=== PATIENT | female | born 1960 ===

== ENCOUNTER 2017-10-22 14:42 | Emergency (ER) | payer OTHER, BC ==
[~2017-10-22 14:42] MED LIST: Morphine 4 MG/ML Syringe IVPUSH ONE
--- NOTE | 2017-10-22 15:36 | EDM.PDOC ---
"Scribed by Idania Casanova 10/22/17 1536 for Sandoval Moreno MD ED HPI GENERAL MEDICAL PROBLEM - General Chief Complaint: Lower Extremity Injury/Pain Stated Complaint: AMBULANCE Time Seen by Provider: 10/22/17 14:40 Source of Information: Reports: Patient, EMS, EMS Notes Reviewed, RN, RN Notes Reviewed History Limitations: Reports: No Limitations - History of Present Illness INITIAL COMMENTS - FREE TEXT/NARRATIVE: Arrived by ambulance with complaint of severe right hip pain sustained just PTO from a ground level fell on the ice. Denies any other injury. Patient was unable to get up or bear weight. Onset: Today, Sudden Duration: Constant Location: Reports: Lower Extremity, Right Quality: Reports: Ache Severity: Severe Improves with: Reports: Immobilization Worsens with: Reports: Movement Associated Symptoms: Reports: No Other Symptoms Treatments [employer]: Reports: IV/IO, Other Medication(s) (Morphine 4mg IVP, Zofran 4mg IVP by paramedics [employer].) Right Hip Pain Score (Numeric/FACES): 2 (while immobilized) - Related Data Allergies Allergy/AdvReac Type Severity Reaction Status Date / Time No Known Allergies Allergy Verified 10/22/17 14:48 Home Meds: Home Meds Aspirin [Adult Low Dose Aspirin EC] 81 mg PO DAILY 10/22/17 [History] Past Medical History - Past Health History Medical/Surgical History: Denies Medical/Surgical History Musculoskeletal History: Reports: Other (See Below) (history of multiple fractures.) Social & Family History - Tobacco Use Smoking Status *Q: Current Every Day Smoker Years of Tobacco use: 35 - Alcohol Use Days Per Week of Alcohol Use: 1 - Recreational Drug Use Recreational Drug Use: No - Living Situation & Occupation Living situation: Reports: Occupation: Employed Review of Systems - Review of Systems Review Of Systems: ROS reveals no pertinent complaints other than HPI. ED EXAM, GENERAL - Physical Exam Exam: See Below Exam Limited By: No Limitations General Appearance: Alert, WD/WN, No Apparent Distress Throat/Mouth: Normal Voice, No Airway Compromise Head: Atraumatic, Normocephalic Neck: Normal Inspection, Full Range of Motion Respiratory/Chest: No Respiratory Distress, Lungs Clear, Normal Breath Sounds, No Accessory Muscle Use, Chest Non-Tender Cardiovascular: Normal Peripheral Pulses, Regular Rate, Rhythm, No Edema, No Gallop, No JVD, No Murmur, No Rub GI/Abdominal: Normal Bowel Sounds, Soft, Non-Tender, No Organomegaly, No Distention, No Abnormal Bruit, No Mass (Female) Exam: Deferred Rectal (Female) Exam: Deferred Extremities: No Pedal Edema, Normal Capillary Refill, Leg Pain (acute Rt hip and zunilda tenderness), Limited Range of Motion. No: Joint Swelling Neurological: Alert, Oriented, CN II-XII Intact, Normal Cognition, No Motor/ Sensory Deficits Psychiatric: Normal Affect Skin Exam: Warm, Dry, Intact, Normal Color, No Rash Course - Vital Signs Last Recorded V/S: Last Vital Signs Temp 36.4 C 10/22/17 14:43 Pulse 80 10/22/17 14:43 Resp 20 10/22/17 14:43 BP 165/90 H 10/22/17 14:43 Pulse Ox 100 10/22/17 14:43 - Orders/Labs/Meds Orders: Active Orders 24 hr Category Date Time Status Insert Ray Catheter [Insert Urinary Catheter] [OM.PC] Care 10/22/17 15:30 Ordered Stat Urinary Catheter Assessment [RC] ASDIRECTED Care 10/22/17 15:24 Active Pelvis wo Cont [CT] Stat Exams 10/22/17 14:42 Taken Meds: Medications Discontinued Medications Generic Name Dose Route Start Last Admin Trade Name Vashti PRN Reason Stop Dose Admin Morphine Sulfate 4 mg 10/22/17 14:42 10/22/17 14:59 Morphine IVPUSH 10/22/17 14:43 4 mg ONETIME ONE Administration - Radiology Interpretation Free Text/Narrative:: CT pelvis: Comminuted right hip fracture. See rad report.IMPRESSION: Comminuted and impacted right intertrochanteric and to lesser extent femoral neck fracture. Thank you for allowing us to participate in the care of your patient. [facility] | Final Radiology Report CONFIDENTIALITY STATEMENT This report is intended only for use by the referring physician, and only in accordance with law. If you received this in error, call [phone]. Page 2 of 2 Dictated and Authenticated by: Jakob Patino MD 10/22/2017 3:33 PM Central Time ([place] & [place]) CT Results Date: 10/22/17 CT Results Time: 15:33 Departure - Departure Time of Disposition: 15:30 Disposition: DC/Tfer to Acute Hospital 02 Condition: Serious Clinical Impression: Closed right hip fracture Qualifiers: Encounter type: initial encounter Qualified Code(s): S72.001A - Fracture of unspecified part of neck of right femur, initial encounter for closed fracture Fall from slipping on ice Qualifiers: Encounter type: initial encounter Qualified Code(s): W00.9XXA - Unspecified fall due to ice and snow, initial encounter - Discharge Information Referrals: PCP,Unobtain [Primary Care Provider] - Forms: ED Department Discharge, Interfacility Transfer EMTALA - My Orders Last 24 Hours: My Active Orders 10/22/17 14:42 Pelvis wo Cont [CT] Stat 10/22/17 15:24 Urinary Catheter Assessment [RC] ASDIRECTED 10/22/17 15:30 Insert Ray Catheter [Insert Urinary Catheter] [OM.PC] Stat - Assessment/Plan Last 24 Hours: My Active Orders 10/22/17 14:42 Pelvis wo Cont [CT] Stat 10/22/17 15:24 Urinary Catheter Assessment [RC] ASDIRECTED 10/22/17 15:30 Insert Ray Catheter [Insert Urinary Catheter] [OM.PC] Stat I have read and agree with the documentation that has been completed regarding this visit. By signing this record, I attest that the documentation was completed in my physical presence and is an accurate record of the encounter."
== END 2017-10-22 16:10 ==
LOC: DL.ED 14:42
DX: S72.001A Fracture of unspecified part of neck of right femur, initial encounter for closed fracture (principal); F17.200 Nicotine dependence, unspecified, uncomplicated; Z79.82 Long term (current) use of aspirin; W00.0XXA Fall on same level due to ice and snow, initial encounter
CPT/HCPCS: 51702; 72192; 96374; 99285; J2270